=== PATIENT | male | born 1965 | race Caucasian/White ===

== ENCOUNTER → 2016-12-30 | Outpatient (CLI) | payer BC ==
[~2016-12-30] MED LIST: NEXIUM PO; VICOPROFEN 200-1 TAB PO
--- NOTE | ~2016-12-30 | CR58 ---
[facility] A Service of [facility] & [facility] RADIOLOGY TEXT RESULTS PATIENT: KAREY JOY LOCATION: [facility] : 61 UNIT #: [id number] AGE: [address]: FENG LUO APRN SEX: M ORDER DR: [id number] [place] [id number] O MR#: [id number] Acc #: [id number] NAME: KAREY JOY : 1965 SEX: M STUDY DATE/TIME: 12/30/2016 14:26 UNIT: [facility] ROOM: STUDY DESCRIPTION: CR Cervical Spine 2 or 3 Views Attending Physician: Feng Luo A.P.R.N. Referring Physician: Feng Luo A.P.R.N. Ordering Physician: Feng Luo A.P.R.N. Primary Care Physician: Feng Luo A.P.R.N. MEDICAL IMAGING REPORT This report is preliminary unless electronic signature is present. EXAM Cervical spine 12/30/2016 INDICATION Neck pain. Cervical fusion follow up. FINDINGS 4 views of the cervical spine were obtained. No comparison. Patient is status post anterior plate and screw fusion at C6-7. Cervical alignment is normal. Prevertebral soft tissues are normal. IMPRESSION C6-7 anterior fusion. Otherwise negative cervical spine. Normal alignment. Dictated by... Darrius Bruce Jr., M.D. THIS IS AN ELECTRONICALLY VERIFIED REPORT Darrius Bruce Jr., M.D. at 12/31/2016 3:38 PM ELLA/dalton TD: 12/31/2016 13:50 JOB #: [id number] MEDICAL IMAGING REPORT Page 1 of 1
== END | disposition home or self-care (01) ==
LOC: SRAD 14:13
DX: G95.20 Unspecified cord compression (principal); Z98.1 Arthrodesis status
CPT/HCPCS: 72040